=== PATIENT | male | born 1935 | race Caucasian/White ===

== ENCOUNTER 2017-06-18 18:57 | Emergency (ER) | payer MEDICARE, MEDICAID ==
--- NOTE | 2017-06-18 19:22 | ER Document Report ---
HPI - HPI Notes: Patient is an 81-year-old male with no significant past medical history who presents the ED via EMS complaining of a left groin lump 1 week. Patient states that people were worried about it and wanted him to get checked out so he came to the ED for it. Patient states that he has not had any pain, redness , or discharge. Patient states that he will notice on occasion the lump will fluctuate in size. Patient is not sexually active. He denies any trouble urinating or issues with his bowel movements. No other concerns or complaints. Denies any headache, fever, URI, sore throat, chest pain, palpitations, syncope, cough, shortness of breath, wheeze, dyspnea, abdominal pain, nausea/ vomiting/diarrhea, urinary retention, dysuria, hematuria, loss of control of bowel or bladder, numbness/tingling, saddle anesthesia, muscle paralysis/ weakness, or rash. - ROS Notes: REVIEW OF SYSTEMS: CONSTITUTIONAL : Denies fever, chills, or sweats. Denies recent illness. EENT: Denies eye, ear, throat, or mouth pain or symptoms. Denies nasal or sinus congestion or discharge. Denies throat, tongue, or mouth swelling or difficulty swallowing. CARDIOVASCULAR: Denies chest pain. Denies palpitations or racing or irregular heart beat. Denies ankle edema. RESPIRATORY: Denies cough, cold, or chest congestion. Denies shortness of breath, difficulty breathing, or wheezing. GASTROINTESTINAL: Denies abdominal pain or distention. Denies nausea, vomiting , or diarrhea. Denies blood in vomitus, stools, or per rectum. Denies black, tarry stools. Denies constipation. GENITOURINARY: see HPI. Denies difficulty urinating, painful urination, burning , frequency, blood in urine, or discharge. MUSCULOSKELETAL: Denies back or neck pain or stiffness. Denies joint pain or swelling. SKIN: Denies rash, lesions or sores. NEUROLOGICAL: Denies confusion or altered mental status. Denies passing out or loss of consciousness. Denies dizziness or lightheadedness. Denies headache. Denies weakness or paralysis or loss of use of either side. Denies problems with gait or speech. Denies sensory loss, numbness, or tingling. ALL OTHER SYSTEMS REVIEWED AND NEGATIVE. Dictation was performed using [employer] voice recognition software - REPRODUCTIVE Reproductive: DENIES: : Past Medical History - Social History Smoking Status: Never Smoker Family History: Reviewed & Not Pertinent - Past Medical History Cardiac Medical History: Reports: Hx Hypertension - MEDICATIONS GI Medical History: Reports: Hx Ulcer - Immunizations Hx Diphtheria, Pertussis, Tetanus Vaccination: Yes Vertical Provider Document - CONSTITUTIONAL Agree With Documented VS: Yes Notes: PHYSICAL EXAMINATION: GENERAL: Well-appearing, well-nourished and in no acute distress. LUNGS: Breath sounds clear to auscultation bilaterally and equal. No wheezes rales or rhonchi. HEART: Regular rate and rhythm without murmurs, rubs, gallops. ABDOMEN: Soft, nontender, nondistended abdomen. No guarding, no rebound. No masses appreciated. Normal bowel sounds present. No CVA tenderness bilaterally. : + bulging (hernia) to the left groin. No erythema, abscess, lesion, ulceration, or discharge noted. No urethral discharge. No testicular/penile tenderness. Bulging is increased with bearing down and coughing. The hernia is reducible and non-tender. Musculoskeletal: LE's b/l: FROM to passive/active. Strength 5+/5. Extremities: No cyanosis, clubbing, or edema b/l. Peripheral pulses 2+. Capillary refill less than 3 seconds. NEUROLOGICAL: Normal speech. Normal sensory, motor exams PSYCH: Normal mood, normal affect. SKIN: Warm, Dry, normal turgor, no rashes or lesions noted. - INFECTION CONTROL TRAVEL OUTSIDE OF THE [place] IN LAST 30 DAYS: No Course - Re-evaluation Re-evalutation: 06/18/17 19:24 Patient is an afebrile, well-hydrated, 81-year-old male who presents the ED with a left inguinal hernia That is not incarcerated or strangulated. Vitals are stable. PE otherwise unremarkable at this time. Low suspicion for any necrosis, sepsis, testicular torsion, incarcerated/strangulated hernia, or any other emergent systemic condition at this time. Patient is aware condition can change from initial presentation and he needs to monitor symptoms closely and seek medical attention if any acute changes. Reviewed red flag symptoms to watch for pertaining to her hernia. I will provide him with information for our general surgeons that he can follow-up on an outpatient basis for further evaluation and management. Recheck with your PCM in 2-3 days. Return to the ED with any worsening/concerning symptoms otherwise as reviewed discharge. Patient is in agreement. Discharge - Discharge Clinical Impression: Inguinal hernia of left side without obstruction or gangrene Condition: Stable Disposition: HOME, SELF-CARE Instructions: Hernia ([facility]) Additional Instructions: Maintain adequate fluid/food intake Keep bowel movements soft with increased fiber and water intake Monitor symptoms closely Tylenol/ibuprofen as needed Recheck with your PCM in 2-3 days Schedule an appointment with the general surgeon next week for an evaluation Return to the ED with any worsening symptoms and/or development of fever, headache, chest pain, palpitations, syncope, shortness of breath, trouble breathing, abdominal pain, n/v/d, blood in stool/urine, constipation, loss of control of bowel/bladder, urinary retention, redness, red streaks, abscess, purulent discharge, increasing pain to the area, unable to reduce the hernia yourself, or other worsening symptoms that are concerning to you. Referrals: KEYANNA WILSON MD [ACTIVE STAFF] - Follow up in 3-5 days FELIPE WILLIAM MD [[facility]] - Follow up in 3-5 days
[2017-06-18 19:30] VITALS: BP 119/65
== END 2017-06-18 20:07 | disposition home or self-care (01) ==
LOC: ER 18:57
DX: K40.90 Unilateral inguinal hernia, without obstruction or gangrene, not specified as recurrent (principal); R22.42 Localized swelling, mass and lump, left lower limb
CPT/HCPCS: 99284